=== PATIENT | female | born 1950 | race Caucasian/White ===

== ENCOUNTER 2020-02-29 06:05 | Day surgery (SDC) | payer MEDICARE, BC ==
[~2020-02-29] VITALS: Ht 162.6 cm; Wt 82.2 kg
[2020-02-29] MEDS ORDERED: PROAIR DIGIHAL90 MCG INH (06:23)
[2020-02-29] MEDS ORDERED: Vitamin B Comple1 EA PO (06:24)
[2020-02-29] MEDS ORDERED: Aspir 8181 MG PO (06:24)
[2020-02-29] MEDS ORDERED: OYSTER SHELL 51 EACH PO (06:24)
[2020-02-29] MEDS ORDERED: St. John's Wor300 M1 PO (06:25)
--- NOTE | 2020-02-29 07:19 | NUR ---
02/29/20 0719 Deepa Cho PT HX OF COPD, SMOKES 1/4-1/2 PACK PER DAY. LUNG SOUNDS CLEAR. DR. PADILLA NOTIFIED. NO NEW ORDERS.
== END 2020-02-29 08:20 | disposition home or self-care (01) ==
LOC: ORSCSDS 06:05
PROVIDERS: Orthopaedic Surgery
PROC: 0LN70ZZ Release Right Hand Tendon, Open Approach (ICD-10-PCS; principal; 2020-02-29 07:30)
DX: M65.311 Trigger thumb, right thumb (principal); J44.9 Chronic obstructive pulmonary disease, unspecified; N18.9 Chronic kidney disease, unspecified; Z79.82 Long term (current) use of aspirin; Z79.899 Other long term (current) drug therapy; F17.210 Nicotine dependence, cigarettes, uncomplicated
CPT/HCPCS: J0171; J0690; J2250; J2704; J7120

== ENCOUNTER → 2021-01-13 | Outpatient (CLI) | payer MEDICARE, BC ==
[~2021-01-13] MED LIST: Aspir 8181 MG PO; OYSTER SHELL 51 EACH PO; PROAIR DIGIHAL90 MCG INH; St. John's Wor300 M1 PO; Vitamin B Comple1 EA PO
[2021-01-13 13:09] LABS: Stool Occult Bld Immuno 1 Negative (NEGATIVE)
== END ==
LOC: LAB EV 10:13 → LAB SHORT 10:13
PROVIDERS: Physician Assistant
DX: Z12.11 Encounter for screening for malignant neoplasm of colon (principal)
CPT/HCPCS: G0328

== ENCOUNTER 2021-08-20 09:52 | Emergency (ER) | payer MEDICARE, BC ==
[~2021-08-20] VITALS: Ht 162.6 cm; Wt 81.7 kg
[2021-08-20 11:19] LABS: BASOPHILS ABSOLUTE AUTO 0.04 K/mm3 (0.00-0.23); BASOPHILS PERCENT AUTO 1 % (0-2); EOSINOPHILS ABSOLUTE AUTO 0.11 K/mm3 (0.00-0.68); EOSINOPHILS PERCENT AUTO 1 % (0-6); Hematocrit 44.4 % (33.0-51.0); Hemoglobin 15.3 g/dL (11.5-16.0); IMMATURE GRAN ABSOLUTE AUTO 0.02 K/mm3 (0.00-0.10); IMMATURE GRAN PERCENT AUTO 0 % (0-1); LYMPHOCYTES PERCENT AUTO 27 % (21-46); MONOCYTES ABSOLUTE AUTO 0.54 K/mm3 (0.16-1.47); MONOCYTES PERCENT AUTO 7 % (4-13); Mean Corpuscular HGB Conc 34.5 g/dL (31.5-36.5); Mean Corpuscular Volume 96 fL (80-100); Mean Platelet Volume 8.9 fL (9.1-12.4); NEUTROPHILS ABSOLUTE AUTO 4.97 K/mm3 (1.96-9.15); NEUTROPHILS PERCENT AUTO 64 % (41-73); Platelet Count 319 K/mm3 (150-400); RDW Coefficient Variation 12.2 % (11.7-14.2); Red Blood Cell Count 4.64 M/mm3 (3.80-5.20); White Blood Cell Count 7.78 K/mm3 (4.00-11.30)
[2021-08-20 11:33] LABS: Albumin, Blood 3.8 g/dL (3.4-5.0); Albumin/Globulin Ratio 1.3 (0.8-1.8); Bilirubin, Total 2.1 mg/dL (0.1-1.0); Bun/Creatinine Ratio 13.9 (12.0-20.0); Calcium, Blood 9.6 mg/dL (8.5-10.1); Creatinine, Blood 0.93 mg/dL (0.40-1.00); Total Protein, Blood 6.8 g/dL (6.4-8.2)
[2021-08-20 12:15] LABS: Source, Urine Clean Catch
[2021-08-20 12:21] LABS: Appearance, Urine Clear (Clear); Bilirubin, Urine Neg (Neg); Blood, Urine 3+ (Neg); Color, Urine Yellow (P-Yellow); Glucose Qualitative, Urine Neg (Neg); Ketones, Urine 1+ (Neg); Leukocyte Esterase, Urine Neg (Neg); Nitrite, Urine Neg (Neg); Protein, Urine 2+ (Neg); Specific Gravity, Urine 1.015 (1.003-1.022); Urobilinogen, Urine NORM (Normal)
[2021-08-20 13:15] LABS: Amorphous Light (0-Heavy); Bacteria Mod /hpf; Mucus Mod (0-Heavy); Red Blood Cells, Urine 0-2 /hpf (0-2); Squamous Epithelial Cells Many /hpf (Few); White Blood Cells, Urine 0-2 /hpf (0-5)
[2021-08-20 13:16] LABS: Calcium Oxalate Crystals Few /hpf
[2021-08-20] MEDS ORDERED: ONDA4ODT MM (18:29)
== END 2021-08-20 18:53 | disposition home or self-care (01) ==
LOC: ER 09:52
PROVIDERS: Physician Assistant
DX: K76.0 Fatty (change of) liver, not elsewhere classified (principal); I10 Essential (primary) hypertension; R10.11 Right upper quadrant pain; E80.7 Disorder of bilirubin metabolism, unspecified
CPT/HCPCS: 36415; 74176; 76705; 80053; 81001; 82248; 83010; 83615; 83690; 85025; 87086; 96374; 99284-25; J1885; J2270; J2405; J7030

== ENCOUNTER 2023-03-16 12:13 | Day surgery (SDC) | payer MEDICARE, BC ==
[~2023-03-16] VITALS: Ht 160 cm; Wt 75.3 kg
[~2023-03-16 12:13] MED LIST changes: +ONDA4ODT MM
[2023-03-16] MEDS ORDERED: OMEP20ER (13:45)
[2023-03-16 14:52] VITALS: BP 137/66
== END 2023-03-16 14:47 | disposition home or self-care (01) ==
LOC: ORSCSDS 12:13
PROVIDERS: Specialist
PROC: 0DB78ZX Excision of Stomach, Pylorus, Via Natural or Artificial Opening Endoscopic, Diagnostic (ICD-10-PCS; principal; 2023-03-16 14:15)
DX: R10.13 Epigastric pain (principal); K21.9 Gastro-esophageal reflux disease without esophagitis; K29.70 Gastritis, unspecified, without bleeding; R11.2 Nausea with vomiting, unspecified; J44.9 Chronic obstructive pulmonary disease, unspecified; I10 Essential (primary) hypertension; F17.210 Nicotine dependence, cigarettes, uncomplicated; Z79.899 Other long term (current) drug therapy; Z79.82 Long term (current) use of aspirin
CPT/HCPCS: 88305; 88342; J2704; J7120

== ENCOUNTER 2023-07-05 19:58 | Observation (INO) | payer MEDICARE, BC ==
[~2023-07-05] VITALS: Ht 160 cm; Wt 72.6 kg
[~2023-07-05 19:58] MED LIST changes: +OMEP20ER
[2023-07-05 21:00] LABS: BASOPHILS ABSOLUTE AUTO 0.03 K/mm3 (0.00-0.23); BASOPHILS PERCENT AUTO 0 % (0-2); EOSINOPHILS ABSOLUTE AUTO 0.13 K/mm3 (0.00-0.68); EOSINOPHILS PERCENT AUTO 2 % (0-6); Hematocrit 36.6 % (33.0-51.0); Hemoglobin 12.8 g/dL (11.5-16.0); IMMATURE GRAN ABSOLUTE AUTO 0.01 K/mm3 (0.00-0.10); IMMATURE GRAN PERCENT AUTO 0 % (0-1); LYMPHOCYTES ABSOLUTE AUTO 2.69 K/mm3 (0.84-5.20); LYMPHOCYTES PERCENT AUTO 31 % (21-46); MONOCYTES ABSOLUTE AUTO 0.58 K/mm3 (0.16-1.47); MONOCYTES PERCENT AUTO 7 % (4-13); Mean Corpuscular HGB 33.1 pg (26.0-34.0); Mean Corpuscular Volume 95 fL (80-100); Mean Platelet Volume 8.9 fL (9.1-12.4); NEUTROPHILS ABSOLUTE AUTO 5.33 K/mm3 (1.96-9.15); NEUTROPHILS PERCENT AUTO 61 % (41-73); Platelet Count 312 K/mm3 (150-400); RDW Coefficient Variation 12.2 % (11.7-14.2); RDW Standard Deviation 42.7 fL (35.1-46.3); Red Blood Cell Count 3.87 M/mm3 (3.80-5.20); White Blood Cell Count 8.77 K/mm3 (4.00-11.30)
[2023-07-05 21:28] LABS: Albumin, Blood 3.7 g/dL (3.4-5.0); Albumin/Globulin Ratio 1.3 (0.8-1.8); Bun/Creatinine Ratio 16.6 (12.0-20.0); Creatinine, Blood 0.91 mg/dL (0.40-1.00); Globulin, Blood 2.9 g/dL (2.2-4.0); Potassium, Blood 3.5 mmol/L (3.5-5.5); Total Protein, Blood 6.6 g/dL (6.4-8.2)
[2023-07-05 23:44] VITALS: BP 113/96
[2023-07-06] VITALS (11 sets, daily range): BP systolic 127–164; BP diastolic 65–90
--- NOTE | 2023-07-06 00:22 | NUR ---
ARRIVAL PT NEW ER ADMIT. ARRIVED TO THE FLOOR A/OX4, AND ON RA. REPORTS MID EPIGASTRIC PAIN AND SQUEEZING LIKE PAIN AROUND HER RIBS 10/01, DENIES NEED FOR PAIN MEDICATION AT THIS TIME. REPORTS WHEN THE PAIN INCREASES SHE BEGINS TO VOMIT AND FEELS LIKE PASSING OUT. REPORTS NORMAL STOOLS AND FLATTUS. SCD'S IN PLACE, IV RUNNING, AND CALL LIGHT IN REACH
[2023-07-06 04:48] LABS: BASOPHILS ABSOLUTE AUTO 0.04 K/mm3 (0.00-0.23); BASOPHILS PERCENT AUTO 1 % (0-2); EOSINOPHILS ABSOLUTE AUTO 0.19 K/mm3 (0.00-0.68); EOSINOPHILS PERCENT AUTO 3 % (0-6); Hematocrit 34.2 % (33.0-51.0); Hemoglobin 11.6 g/dL (11.5-16.0); IMMATURE GRAN ABSOLUTE AUTO 0.02 K/mm3 (0.00-0.10); IMMATURE GRAN PERCENT AUTO 0 % (0-1); LYMPHOCYTES PERCENT AUTO 36 % (21-46); MONOCYTES ABSOLUTE AUTO 0.72 K/mm3 (0.16-1.47); MONOCYTES PERCENT AUTO 10 % (4-13); Mean Corpuscular HGB 32.8 pg (26.0-34.0); Mean Corpuscular HGB Conc 33.9 g/dL (31.5-36.5); Mean Corpuscular Volume 97 fL (80-100); Mean Platelet Volume 9.1 fL (9.1-12.4); NEUTROPHILS PERCENT AUTO 52 % (41-73); Platelet Count 276 K/mm3 (150-400); RDW Coefficient Variation 12.2 % (11.7-14.2); RDW Standard Deviation 42.9 fL (35.1-46.3); Red Blood Cell Count 3.54 M/mm3 (3.80-5.20); White Blood Cell Count 7.57 K/mm3 (4.00-11.30)
--- NOTE | 2023-07-06 05:13 | NUR ---
SHIFT SUMMARY VSS, SR 63. PT SLEPT SINCE ARRIVING TO THE FLOOR, HAS BEEN ABLE TO AMBULATE INDEP T/O THE NIGHT. HAS NOT REQUIRED ANY PAIN MEDICATION, YET. VODIING W/O DIFFICULTY. HAS REMAINED STRICT NPO, NO N/V NOTED. NO ACUTE EVENTS NOTED. PLAN FOR SURGERY TODAY. 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
[2023-07-06 05:46] LABS: Albumin, Blood 3.1 g/dL (3.4-5.0); Albumin/Globulin Ratio 1.2 (0.8-1.8); Bilirubin, Total 0.7 mg/dL (0.1-1.0); Bun/Creatinine Ratio 16.9 (12.0-20.0); Calcium, Blood 8.3 mg/dL (8.5-10.1); Creatinine, Blood 0.83 mg/dL (0.40-1.00); Globulin, Blood 2.5 g/dL (2.2-4.0); Potassium, Blood 3.6 mmol/L (3.5-5.5); Total Protein, Blood 5.6 g/dL (6.4-8.2)
--- NOTE | 2023-07-06 08:17 | NUR ---
DENIES ANY PAIN OR NAUSEA, PT ANXIOUS TO HAVE SURGERY AND WANTS TO GO HOME LATER TODAY, INDEPENDENT TO THE BATHROOM, DENIES ANY OTHER DISCOMFORT AT THIS TIME.
--- NOTE | 2023-07-06 10:35 | NUR ---
DAY SURGERY NOTE PT A&OX4, BREATHING RA, CALM, NO COMPLAINTS. PT GLASSES TO PACU C LABEL. TELE DISCONNECTED AND MOUNTER HAND INFORMED PRIOR TO SURGERY- TELE BOX TO PACU. 20G IV TO L AC FLUSHED AND INFUSING LR AT TKO. Ambulatory in Day Surgery Patient confirms NPO status and agrees with scheduled surgery. Pre-Op teaching done. Pt verbalizes understanding.
--- NOTE | 2023-07-06 11:21 | NUR ---
PT IN OR.
--- NOTE | 2023-07-06 11:40 | NUR ---
07/06/23 1140 Kassandra Ruiz ISOVUE 300 (30MLS) USED FOR CHOLANGIOGRAM. LOT#: [id number] EXPIRATION:05/2025
--- NOTE | 2023-07-06 12:52 | NUR ---
POST OP S/P LAB NATALI BY DR. BOLDEN, AWAKE, STANDBY ASSIST TO TRANSFER TO BED, DENIES ANY NEED FOR PAIN MEDS AT THIS TIME, REPORT HAVING SOME MILD PAIN ON RUQ AREA, DENIES ANY NAUSEA, ABD W/ 4 LAP INCISIONS W/ SKIN GLUE, C/D/I, ABD SOFT, LUNGS CLEAR T/O, HRR, CONT. TO MONITOR VS AND ANY CHANGES.
--- NOTE | 2023-07-06 15:17 | NUR ---
PT DENIES ANY NEED FOR PAIN MEDS, AMBULATED DOWN THE MUTLANI, TOLERATED WELL, VOIDED WITHOUT DIFFICULTY, TOLERATED REGULAR FOOD WELL, ABD INCISIONS C/D/I, DR. BOLDEN AND DR. PÉREZ NOTIFIED, PT OK'D FOR DC, PT DC'D HOME, DC INSTRUCTIONS GIVEN, VERBALIZED UNDERSTANDING.
== END 2023-07-06 15:20 | disposition home or self-care (01) ==
LOC: ER 19:58 → SURS 19:59
PROVIDERS: Emergency Medicine; ADMIT Internal Medicine
PROC: 0FT44ZZ Resection of Gallbladder, Percutaneous Endoscopic Approach (ICD-10-PCS; principal; 2023-07-05)
DX: K80.12 Calculus of gallbladder with acute and chronic cholecystitis without obstruction (principal); J44.9 Chronic obstructive pulmonary disease, unspecified; K21.9 Gastro-esophageal reflux disease without esophagitis; I12.9 Hypertensive chronic kidney disease with stage 1 through stage 4 chronic kidney disease, or unspecified chronic kidney disease; N18.30 Chronic kidney disease, stage 3 unspecified; Z79.82 Long term (current) use of aspirin; Z87.891 Personal history of nicotine dependence
CPT/HCPCS: 74300; 76705; 80053; 84484; 85025; 88304; 93005; 93010; 96365; 96374; 96375; 96376; 99285-25; C1729; G0378; J0295; J0461; J1100; J1885; J2371; J2405; J2704; J3010; J7030; J7120